=== PATIENT | female | born 1990 | race Caucasian/White ===

== ENCOUNTER 2019-10-25 19:21 | Emergency (ER) | payer MEDICAID ==
[~2019-10-25] VITALS: Ht 157.5 cm; Wt 76.7 kg
[2019-10-25 19:27] VITALS: BP 122/72
--- NOTE | 2019-10-25 19:35 | NUR ---
PT AMBULATED TO BED 11 WITH STEADY GAIT. NEGATIVE FOR COVID SCREENING.
--- NOTE | 2019-10-25 19:41 | NUR ---
29F C/O INTERMITTENT STOMACH PAIN SINCE END OF SEPTEMBER/EARLY OCTOBER. PAIN STARTED AGAIN TODAY AT 7AM AND HAS BEEN CONSTANT. PAIN FEELS LIKE BURNING/SHARP. PAIN 12/14. STATES HAVING AN EPISODE OF VOMITING AND NAUSEA LAST FRIDAY. DENIES DIARRHEA. MEDHX: DENIES RX: DENIES
--- NOTE | 2019-10-25 19:47 | NUR ---
DR BANGURA AT BEDSIDE EVALUATING PATIENT.
[2019-10-25] MEDS ORDERED: ONDANSETRON 4 MG ODT PO ONE (19:55)
[2019-10-25] MEDS ORDERED: KETOROLAC 60 MG/2 ML VIAL IM ONE (19:55)
--- NOTE | 2019-10-25 20:27 | NUR ---
US AT BEDSIDE.
[2019-10-25 20:31] LABS: BASOPHILS # (AUTO) 0.1 K/uL (0.00-0.22); BASOPHILS % (AUTO) 0.7 % (0.0-2.0); EOSINOPHILS # (AUTO) 0.2 K/uL (0-0.4); EOSINOPHILS % (AUTO) 1.7 % (0.0-4.0); HEMATOCRIT 39.9 % (36-48); HEMOGLOBIN 13.8 g/dL (12.0-16.0); LYMPHOCYTES # (AUTO) 2.3 K/uL (2.5-16.5); LYMPHOCYTES % (AUTO) 25.8 % (20.5-51.1); MEAN CORPUSCULAR HEMOGLOBIN 31 pg (27-31); MEAN CORPUSCULAR HGB CONC 35 g/dL (33-37); MEAN CORPUSCULAR VOLUME 90.4 fL (80-94); MONOCYTES # (AUTO) 0.4 K/uL (0.8-1.0); MONOCYTES % (AUTO) 4.7 % (1.7-9.3); NEUTROPHILS % (AUTO) 67.1 % (42.2-75.2); PLATELET COUNT (AUTO) 219 K/uL (140-450); RED BLOOD CELL COUNT(AUTO) 4.41 MIL/uL (4.20-5.40); RED CELL DISTRIBUTION WIDTH 13.2 % (11.6-13.7); WHITE BLOOD COUNT (AUTO) 8.9 K/uL (4.8-10.8)
[2019-10-25 20:45] LABS: ALBUMIN 3.8 g/dL (3.4-5.0); CARBON DIOXIDE 26.4 mmol/L (21-32); CREATININE 0.8 mg/dL (0.6-1.3); POTASSIUM 4.4 mmol/L (3.5-5.1); TOTAL BILIRUBIN 0.7 mg/dL (0.0-1.0)
--- NOTE | 2019-10-25 20:49 | NUR ---
pt states decreased pain from 6/10 to 3/10 and tolerable. no further needs at this time. bed at lowest and locked, rails up x1
[2019-10-25 21:51] VITALS: BP 126/72
--- NOTE | 2019-10-25 21:51 | NUR ---
Patient discharged with v/s stable. Written and verbal after care instructions given and explained. Patient alert, oriented and verbalized understanding of instructions. Ambulatory with steady gait. All questions addressed prior to discharge. ID band removed. Patient advised to follow up with PMD. Rx of NORCO AND ZOFRAN given. Patient educated on indication of medication including possible reaction and side effects. Opportunity to ask questions provided and answered.
== END 2019-10-25 21:51 | disposition home or self-care (01) ==
LOC: MED 19:21
DX: K80.81 Other cholelithiasis with obstruction (principal); Z98.890 Other specified postprocedural states
CPT/HCPCS: 36415; 76705; 80053; 81002; 81025; 83690; 85025; 96372; 99284; J1885; Q0092; Q0162

== ENCOUNTER 2019-11-17 23:25 | Emergency (ER) | payer MEDICAID ==
[~2019-11-17] VITALS: Ht 157.5 cm; Wt 73.5 kg
[2019-11-17 23:30] VITALS: BP 128/82
[2019-11-17] MEDS ORDERED: NACL 0.9% 1,000 ML IV ONE (23:45)
[2019-11-17] MEDS ORDERED: KETOROLAC 30 MG/ML VIAL IVP ONE (23:45)
[2019-11-17] MEDS ORDERED: ONDANSETRON 4 MG/2 ML VIAL IVP ONE (23:45)
[2019-11-18 00:01] LABS: BASOPHILS % (AUTO) 0.6 % (0.0-2.0); EOSINOPHILS # (AUTO) 0.2 K/uL (0-0.4); HEMATOCRIT 39.6 % (36-48); HEMOGLOBIN 13.8 g/dL (12.0-16.0); LYMPHOCYTES # (AUTO) 2.5 K/uL (2.5-16.5); LYMPHOCYTES % (AUTO) 29.6 % (20.5-51.1); MEAN CORPUSCULAR HEMOGLOBIN 32 pg (27-31); MEAN CORPUSCULAR HGB CONC 35 g/dL (33-37); MEAN CORPUSCULAR VOLUME 90.3 fL (80-94); MONOCYTES # (AUTO) 0.6 K/uL (0.8-1.0); NEUTROPHILS % (AUTO) 60.8 % (42.2-75.2); PLATELET COUNT (AUTO) 214 K/uL (140-450); RED BLOOD CELL COUNT(AUTO) 4.38 MIL/uL (4.20-5.40); RED CELL DISTRIBUTION WIDTH 13.2 % (11.6-13.7); WHITE BLOOD COUNT (AUTO) 8.3 K/uL (4.8-10.8)
[2019-11-18 00:21] LABS: APPEARANCE,URINE SL CLOUDY (CLEAR); BILIRUBIN,URINE NEGATIVE (NEGATIVE); BLOOD, URINE NEGATIVE (NEGATIVE); COLOR,URINE YELLOW (YELLOW); LEUKOCYTE ESTERASE ,URINE NEGATIVE (NEGATIVE); NITRITE, URINE NEGATIVE (NEGATIVE); PH,URINE 5.5 (5.0-9.0); UGLUCOSE NEGATIVE (NEGATIVE)
[2019-11-18 00:54] LABS: ALBUMIN 4.1 g/dL (3.4-5.0); ANION GAP 12.4 (8-16); CARBON DIOXIDE 28.2 mmol/L (21-32); CREATININE 0.9 mg/dL (0.6-1.3); POTASSIUM 3.6 mmol/L (3.5-5.1); TOTAL BILIRUBIN 1.2 mg/dL (0.0-1.0)
[2019-11-18] MEDS ORDERED: MORPHINE SULFATE 2 MG/ML SYR IVP ONE (01:30)
[2019-11-18 03:00] VITALS: BP 122/60
== END 2019-11-18 03:00 | disposition home or self-care (01) ==
LOC: MED 23:25
DX: K80.20 Calculus of gallbladder without cholecystitis without obstruction (principal); Z98.890 Other specified postprocedural states
CPT/HCPCS: 36415; 76705; 80053; 81003; 81025; 83690; 85025; 96374; 96375; 99284; J1885; J2270; J2405; J7030; Q0092; 81002

== ENCOUNTER 2019-11-21 23:36 | Emergency (ER) | payer MEDICAID ==
[~2019-11-21] VITALS: Ht 157.5 cm; Wt 72.6 kg
[2019-11-21 23:39] VITALS: BP 124/78
[2019-11-22] MEDS ORDERED: KETOROLAC 60 MG/2 ML VIAL IM ONE
[2019-11-22] MEDS ORDERED: MORPHINE SULFATE 2 MG/ML SYR ONE (00:10)
[2019-11-22] MEDS ORDERED: MORPHINE SULFATE 4 MG/ML SYR IM ONE (00:10)
[2019-11-22 00:27] VITALS: BP 124/78
== END 2019-11-22 00:28 | disposition home or self-care (01) ==
LOC: MED 23:36
DX: R10.11 Right upper quadrant pain (principal); R11.0 Nausea; Z98.890 Other specified postprocedural states
CPT/HCPCS: 81002; 81025; 96372; 99283; J2270; J1885

== ENCOUNTER 2020-03-31 00:02 | Emergency (ER) | payer MEDICAID, OTHER ==
[~2020-03-31] VITALS: Ht 157.5 cm; Wt 71.2 kg
[2020-03-31 00:27] VITALS: BP 128/75
--- NOTE | 2020-03-31 00:32 | NUR ---
PT TAKEN TO BED 6
--- NOTE | 2020-03-31 00:45 | NUR ---
30 Y/O FEMALE C/O 01/13 INTERMITTENT, SHARP RLQ ABDOMINAL PAIN AND MID EPIGASTRIC PAIN X4 DAYS. RADIATING TO LEFT LOWER BACK. PT STATES SHE HAS BEEN FEELING NAUSEOUS WITH NO V/D. DENIES OTC MEDS. HYPERACTIVE BOWEL SOUNDS, PAIN UPON PALPATION. LUNG SOUNDS CLA. SKIN WARM AND DRY. MED HX: GALLSTONES, HEMATOMA RX: DENIES NKA
--- NOTE | 2020-03-31 00:59 | NUR ---
DR LEON AT BEDSIDE EVALUATING PT
[2020-03-31] MEDS ORDERED: NACL 0.9% 500 ML IV ONE (01:08)
[2020-03-31] MEDS ORDERED: ONDANSETRON 4 MG/2 ML VIAL IVP ONE (01:10)
[2020-03-31] MEDS ORDERED: KETOROLAC 30 MG/ML VIAL IVP ONE (01:10)
--- NOTE | 2020-03-31 01:19 | NUR ---
LAB AT BEDSIDE
--- NOTE | 2020-03-31 01:20 | NUR ---
ULTRASOUND AT BEDSIDE
[2020-03-31 01:25] LABS: BASOPHILS % (AUTO) 0.4 % (0.0-2.0); EOSINOPHILS % (AUTO) 0.5 % (0.0-4.0); HEMOGLOBIN 12.7 g/dL (12.0-16.0); LYMPHOCYTES # (AUTO) 1.5 K/uL (2.5-16.5); LYMPHOCYTES % (AUTO) 18.8 % (20.5-51.1); MEAN CORPUSCULAR HEMOGLOBIN 31 pg (27-31); MEAN CORPUSCULAR HGB CONC 34 g/dL (33-37); MEAN CORPUSCULAR VOLUME 91.9 fL (80-94); MONOCYTES # (AUTO) 0.5 K/uL (0.8-1.0); MONOCYTES % (AUTO) 6.1 % (1.7-9.3); NEUTROPHILS % (AUTO) 74.2 % (42.2-75.2); PLATELET COUNT (AUTO) 197 K/uL (140-450); RED BLOOD CELL COUNT(AUTO) 4.03 MIL/uL (4.20-5.40); RED CELL DISTRIBUTION WIDTH 12.9 % (11.6-13.7); WHITE BLOOD COUNT (AUTO) 8.1 K/uL (4.8-10.8)
[2020-03-31 01:36] LABS: CARBON DIOXIDE 23.7 mmol/L (21-32); POTASSIUM 3.7 mmol/L (3.5-5.1)
[2020-03-31 01:42] LABS: ALBUMIN 3.8 g/dL (3.4-5.0); TOTAL BILIRUBIN 0.9 mg/dL (0.0-1.0)
[2020-03-31 03:22] VITALS: BP 112/66
--- NOTE | 2020-03-31 03:22 | NUR ---
Patient discharged with v/s stable. Written and verbal after care instructions given and explained. Patient alert, oriented and verbalized understanding of instructions. Ambulatory with steady gait. All questions addressed prior to discharge. ID band removed. IV Discontinued. Patient advised to follow up with PMD. Rx of ZOFRAN, TRAMADOL, MOTRIN given. Patient educated on indication of medication including possible reaction and side effects. Opportunity to ask questions provided and answered.
== END 2020-03-31 03:22 | disposition home or self-care (01) ==
LOC: MED 00:02
DX: R11.0 Nausea (principal); K80.80 Other cholelithiasis without obstruction; R03.0 Elevated blood-pressure reading, without diagnosis of hypertension
CPT/HCPCS: 36415; 76705; 80053; 81002; 81025; 83690; 85025; 96361; 96374; 96375; 99284; J1885; J2405; J7030; Q0092

== ENCOUNTER 2021-03-08 20:00 | Observation (INO) | payer MEDICAID, OTHER, SELFPAY ==
[~2021-03-08] VITALS: Ht 157.5 cm; Wt 68.0 kg
[2021-03-08 20:30] VITALS: BP 138/83
== END 2021-03-08 22:10 | disposition home or self-care (01) ==
LOC: MLD 20:00
PROVIDERS: ADMIT Obstetrics & Gynecology; ATTEND Obstetrics & Gynecology
DX: O26.892 Other specified pregnancy related conditions, second trimester (principal); R10.30 Lower abdominal pain, unspecified; O21.2 Late vomiting of pregnancy; Z3A.23 23 weeks gestation of pregnancy
CPT/HCPCS: 59025; G0378

== ENCOUNTER 2021-11-28 00:30 | Emergency (ER) | payer SELFPAY ==
[~2021-11-28] VITALS: Ht 165.1 cm; Wt 66.2 kg
[2021-11-28 00:36] VITALS: BP 130/82
--- NOTE | 2021-11-28 00:40 | NUR ---
PT TAKEN TO BED 6
--- NOTE | 2021-11-28 00:41 | NUR ---
Dr. Cifuentes examining patient.
--- NOTE | 2021-11-28 00:45 | NUR ---
PATIENT REFUSED TO BE ON THE TRIMMER MEAT AND PLACED ON GOWN., STATED "I FEEL HOT". TOOK IT OFF.
--- NOTE | 2021-11-28 00:45 | NUR ---
PATIENT AMBULATED TO THE AND BACK TO BED 6
--- NOTE | 2021-11-28 00:49 | NUR ---
URINE COLLECTED AND HANDED TO LAB
[2021-11-28 01:01] VITALS: BP 130/82
[2021-11-28 01:04] LABS: BARBITURATE, URINE NEGATIVE ng/ml (NEG <=200); BENZODIAZEPINE, URINE NEGATIVE ng/mL (NEG <=200); CANNABINOID, URINE POSITIVE ng/mL (NEG <=50); COCAINE, URINE NEGATIVE ng/mL (NEG <=300); OPIATE, URINE NEGATIVE ng/mL (NEG <=2000); PHENCYCLIDINE SCREEN,URINE NEGATIVE ng/mL (NEG <=25)
--- NOTE | 2021-11-28 01:17 | NUR ---
The patient's care was reviewed and supervised by Estephania Gilmore RN.
--- NOTE | 2021-11-28 01:17 | NUR ---
Patient discharged with v/s stable. Written and verbal after care instructions given and explained. Patient verbalized understanding. Ambulatory with steady gait. All questions addressed prior to discharge. Advised to follow up with PMD.
== END 2021-11-28 01:17 | disposition home or self-care (01) ==
LOC: MED 00:30
DX: F19.10 Other psychoactive substance abuse, uncomplicated (principal); R07.2 Precordial pain; M25.512 Pain in left shoulder; F12.90 Cannabis use, unspecified, uncomplicated; F15.90 Other stimulant use, unspecified, uncomplicated
CPT/HCPCS: 80305; 81025; 93005; 99284